=== PATIENT | female | born 1950 | race Caucasian/White ===

== ENCOUNTER → 2016-09-25 | Outpatient (CLI) | payer MEDICARE, BC ==
[~2016-09-25] MED LIST: COLACE PO; FISH OIL 1,0001 CAP PO; NEXIUM PO; SINGULAIR PO; SYNTHROID PO; TIMOPTIC2.5 ML OP; TYLOX 5/500 CAP1 CAP PO; ZESTORETIC PO; ZOCOR PO; ZYRTEC PO
--- NOTE | ~2016-09-25 | MY11 ---
[facility] A Service of [facility] RADIOLOGY TEXT RESULTS PATIENT: FELTON HITCHCOCK LOCATION: [facility] : 52 UNIT #: [id number] AGE: [address]: Chico Canela MD SEX: F ORDER DR: [id number] [facility] [address] [place], [place] [address] [id number] O MR#: [id number] Acc #: [id number] NAME: FELTON HITCHCOCK : 1950 SEX: F STUDY DATE/TIME: 09/25/2016 9:20 UNIT: [facility] ROOM: STUDY DESCRIPTION: MY Mammogram Screening Dig Swapnil Attending Physician: Chico Canela Jr., M.D. Referring Physician: Chico Canela Jr., M.D. Ordering Physician: Chico Canela Jr., M.D. Primary Care Physician: Chico Canela Jr., M.D. MEDICAL IMAGING REPORT This report is preliminary unless electronic signature is present EXAM Digital screening mammogram 09/25/2016. HISTORY A 66-year-old woman, positive family history, paternal aunt. Annual screening. COMPARISON STUDIES Mammograms date to 08/17/2005 with most recent screening comparison 09/24/2015. FINDINGS Digital imaging of each breast was completed utilizing screening protocol. Review includes FDA-approved CAD device. Breast parenchyma is predominantly fatty replaced. Interval occurring multiple subcentimeter lipoid cyst noted in each breast with somewhat dominance present in the left breast. These lipoid cysts are associated with some increase in parenchymal opacity as well. This is particularly projecting anterior and middle third upper hemisphere location. I see no suspicious mass characteristics or suspicious microcalcifications and no architectural deformity. IMPRESSION Benign mammogram. See full report. Annual screening recommended. BIRADS II Patients over the age of 40 are entered into a reminder system with target due date for the next mammogram. A result letter will also be sent to the patient. BIRADS: 2 Benign Finding [facility] A Service of [facility] RADIOLOGY TEXT RESULTS PATIENT: FELTON HITCHCOCK LOCATION: [facility] : 52 UNIT #: [id number] AGE: [address]: Chico Canela MD SEX: F ORDER DR: Dictated by... Felton Sewell M.D. THIS IS AN ELECTRONICALLY VERIFIED REPORT Felton Sewell M.D. at 09/25/2016 1:41 PM CLARA/vivian TD: 09/25/2016 13:20 JOB #: [id number] MEDICAL IMAGING REPORT Page 1 of 1 COPY
== END | disposition home or self-care (01) ==
LOC: CWCC 09:04
DX: Z12.31 Encounter for screening mammogram for malignant neoplasm of breast (principal); Z80.3 Family history of malignant neoplasm of breast
CPT/HCPCS: G0202